=== PATIENT | male | born 1945 | race Caucasian/White ===

== ENCOUNTER 2016-05-29 18:05 | Inpatient (IN) | payer OTHER ==
[2016-05-29] MEDS ORDERED: NS 1,000 ML IV ONE ×2 (19:13)
[2016-05-29] MEDS ORDERED: ONDANSETRON 4 MG/2 ML VIAL IVP ONE (19:13)
--- NOTE | 2016-05-29 19:16 | EDPHY ---
H & P Time Seen by Provider: 05/29/16 18:47 HPI/ROS: CHIEF COMPLAINT: Left abdominal pain HISTORY OF PRESENT ILLNESS: Patient has a history of "spastic colon" and started having symptoms yesterday evening. He describes sweating with crampy left-sided abdominal pain associated with 3 episodes of red blood per rectum. No change in urinary symptoms. Does not radiate. Similar to previous episodes of his colon problem but he never before had bleeding. Symptoms of mild at present but was moderate to severe at home. Not better worse with oral intake. No vomiting or bloating. REVIEW OF SYSTEMS: Eye: no change in vision ENT: No ear symptoms Cardiac: no chest pain or syncope Pulmonary: Nonproductive cough for 2 days with mild sore throat Abdomen: HPI Musculoskeletal: no back pain Skin: no rash Neuro: no headache Constitutional: no fever : no urinary symptoms A comprehensive 10 point review of systems is otherwise negative aside from elements mentioned in the history of present illness. PAST MEDICAL HISTORY: Spastic colon as above, hernia repair, lumbar fusion, prostatectomy, hepatitis-A. Hiatal hernia.No history of atrial fibrillation. Social history: No alcohol, primary care is [place], . General Appearance: Alert and conversant, cooperative. Eyes: No scleral icterus. ENT, Mouth: Normal mucous membranes. Respiratory: Normal respiratory effort, breath sounds equal, lungs are clear to auscultation. Cardiovascular: Regular rate and rhythm. Gastrointestinal: Abdomen is soft and LLQ tenderness to palpation. No suprapubic tenderness. No rebound or guarding. Rectal exam shows yellow brown stool with otherwise normal rectal exam. No bleeding or hemorrhoid or surrounding induration. Neurological: Alert and oriented x3. Normally conversant. Face symmetric, normal movement and sensation in all extremities. Skin: Warm and dry, no rashes. Musculoskeletal: No peripheral edema and no joint swelling. Psychiatric: Not agitated. Emergency Department course/MDM: Zofran 4 mg IV, normal saline 2 L IV, noncontrast abdominal CT as the patient has anaphylactic allergy to IV contrast. Patient's rhythm is reviewed personally by myself on the monitor and is sinus, not atrial fibrillation. 1954: Results discussed, pain increasing, Dilaudid 0.5 mg IV. Does not meet SIRS criteria at this time. Plan for admission for supportive treatment of colitis, I think it is more likely infectious than ischemic. 2004: Discussed with uptake. Admit med surge, quinolone and Flagyl, add lactate. Patient had IV Flagyl started in the emergency department. The lactate was ordered as a screen for ischemic colitis not for sepsis. Smoking Status: Never smoked Constitutional: Initial Vital Signs Temperature (C) 36.5 C 05/29/16 18:17 Heart Rate 76 05/29/16 18:17 Respiratory Rate 16 05/29/16 18:17 Blood Pressure 103/95 H 05/29/16 18:17 O2 Sat (%) 98 05/29/16 18:17 O2 Delivery Mode Room Air Allergies/Adverse Reactions: Sulfa (Sulfonamide Antibiotics) Allergy (Mild, Verified 04/27/13 09:17) Iodinated Contrast Media - Oral and [IV Dye, Iodine Containing] Allergy ( Verified 04/27/13 09:17) Home Medications: Medication Instructions Recorded PARoxetine HCL [Paxil 20mg (RX)] 40 mg PO DAILY 04/27/13 Medical Decision Making - Diagnostics EKG Interpretation: 12-lead EKG interpreted by me; official reading is in trace master. My interpretation is sinus rhythm rate 61 no ischemic changes Imagin cm descending colitis, on CT per Isdilmai 1949. No SBO or mass or perforation. Differential Diagnosis: Differential considered including but not limited to diverticulitis, gastrointestinal cramping, renal colic, bowel obstruction, lower GI bleed. Consult/Admit Bed Type: [place] [id number] - Data Points Laboratory Results: Laboratory Results 05/29/16 18:54 05/29/16 18:54 05/29/16 05/29/16 05/29/16 19:00 18:54 18:54 WBC 14.37 10^3/uL H 10^3/uL (3.80-9.50) RBC 6.07 10^6/uL 10^6/uL (4.40-6.38) Hgb 18.5 g/dL H g/dL (13.7-17.5) Hct 54.2 % H % (40.0-51.0) MCV 89.3 fL fL (81.5-99.8) MCH 30.5 pg pg (27.9-34.1) MCHC 34.1 g/dL g/dL (32.4-36.7) RDW 13.1 % % (11.5-15.2) Plt Count 355 10^3/uL 10^3/uL (150-400) MPV 9.2 fL fL (8.7-11.7) Neut % (Auto) 82.1 % H % (39.3-74.2) Lymph % (Auto) 9.5 % L % (15.0-45.0) [place] % (Auto) 7.2 % % (4.5-13.0) Eos % (Auto) 0.2 % L % (0.6-7.6) Baso % (Auto) 0.6 % % (0.3-1.7) Nucleat RBC Rel Count 0.0 % % (0.0-0.2) Absolute Neuts (auto) 11.80 10^3/uL H 10^3/uL (1.70-6.50) Absolute Lymphs (auto) 1.36 10^3/uL 10^3/uL (1.00-3.00) Absolute Monos (auto) 1.03 10^3/uL H 10^3/uL (0.30-0.80) Absolute Eos (auto) 0.03 10^3/uL 10^3/uL (0.03-0.40) Absolute Basos (auto) 0.09 10^3/uL 10^3/uL (0.02-0.10) Absolute Nucleated RBC 0.00 10^3/uL 10^3/uL (0-0.01) Immature Gran % 0.4 % % (0.0-1.1) Immature Gran # 0.06 10^3/uL 10^3/uL (0.00-0.10) Sodium 141 mEq/L mEq/L (134-144) Potassium 3.8 mEq/L mEq/L (3.5-5.2) Chloride 98 mEq/L mEq/L (97-110) Carbon Dioxide 26 mEq/l mEq/l (22-31) Anion Gap 17 mEq/L H mEq/L (8-16) BUN 9 mg/dL mg/dL (7-23) Creatinine 1.0 mg/dL mg/dL (0.7-1.3) Estimated GFR > 60 Glucose 134 mg/dL H mg/dL (70-100) Calcium 10.2 mg/dL mg/dL (8.5-10.4) Total Bilirubin 2.1 mg/dL H mg/dL (0.1-1.4) Conjugated Bilirubin 0.5 mg/dL mg/dL (0.0-0.5) Unconjugated Bilirubin 1.6 mg/dL H mg/dL (0.0-1.1) AST 38 IU/L IU/L (17-59) ALT 26 IU/L IU/L (21-72) Alkaline Phosphatase 82 IU/L IU/L (38-126) Total Protein 9.0 g/dL H g/dL (6.3-8.2) Albumin 5.0 g/dL g/dL (3.5-5.0) Lipase 19.0 IU/L L IU/L (23-300) Stool Occult Bld Scrn POSITIVE H (NEGATIVE) Medications Given: Discontinued Medications Hydromorphone HCl (Dilaudid) 0.5 mg IVP EDNOW ONE Stop: 05/29/16 19:57 Last Admin: 05/29/16 20:19 Dose: 0.5 mg Sodium Chloride (Ns) 1,000 mls @ 0 mls/hr IV ONCE ONE PRN Reason: Wide Open Stop: 05/29/16 19:14 Last Admin: 05/29/16 19:22 Dose: 1,000 mls Sodium Chloride (Ns) 1,000 mls @ 0 mls/hr IV ONCE ONE PRN Reason: Wide Open Stop: 05/29/16 19:14 Last Admin: 05/29/16 19:23 Dose: 1,000 mls Ondansetron HCl (Zofran) 4 mg IVP EDNOW ONE Stop: 05/29/16 19:14 Last Admin: 05/29/16 19:22 Dose: 4 mg Departure - Departure Disposition: [facility] Inpatient Acute Clinical Impression: Colitis Condition: Good
[2016-05-29 19:20] LABS: % IMMATURE GRANULYOCYTES 0.4 % (0.0-1.1); ABSOLUTE IMMATURE GRANULOCYTES 0.06 10^3/uL (0.00-0.10); ADD DIFF? NO; ADD MORPH? NO; ADD SCAN? NO; ATYPICAL LYMPHOCYTE FLAG 0 (0-99); FRAGMENT RBC FLAG 0 (0-99); HEMATOCRIT 54.2 % (40.0-51.0); HEMOGLOBIN 18.5 g/dL (13.7-17.5); LEFT SHIFT FLG 0 (0-99); LIPEMIA HEMOLYSIS FLAG 90 (0-99); MEAN CELL HEMOGLOBIN 30.5 pg (27.9-34.1); MEAN CELL HEMOGLOBIN CONCENTR. 34.1 g/dL (32.4-36.7); MEAN CELL VOLUME 89.3 fL (81.5-99.8); MEAN PLATELET VOLUME 9.2 fL (8.7-11.7); PLATELET CLUMPS FLAG 10 (0-99); PLATELET COUNT 355 10^3/uL (150-400); RED BLOOD CELL COUNT 6.07 10^6/uL (4.40-6.38); RED CELL DISTRIBUTION WIDTH 13.1 % (11.5-15.2)
[2016-05-29 19:29] LABS: ALANINE AMINOTRANSFERASE 26 IU/L (21-72); ALKALINE PHOSPHATASE 82 IU/L (38-126); ANION GAP 17 mEq/L (8-16); ASPARTATE AMINOTRANSFERASE 38 IU/L (17-59); BILIRUBIN,TOTAL 2.1 mg/dL (0.1-1.4); BILIRUBIN-CONJUGATED 0.5 mg/dL (0.0-0.5); BILIRUBIN-UNCONJUGATED 1.6 mg/dL (0.0-1.1); CALCIUM 10.2 mg/dL (8.5-10.4); CARBON DIOXIDE 26 mEq/l (22-31); CHLORIDE 98 mEq/L (97-110); GLOMERULAR FILTRATION RATE > 60; GLUCOSE 134 mg/dL (70-100); POTASSIUM 3.8 mEq/L (3.5-5.2); SODIUM 141 mEq/L (134-144)
[2016-05-29] MEDS ORDERED: HYDROmorphONE/DILAUDID 1 MG/ML SYR IVP ONE (19:56)
--- NOTE | 2016-05-29 20:09 | CPEKG ---
Heart Rate: 61 RR Interval: 984 P-R Interval: 148 QRSD Interval: 94 QT Interval: 448 QTC Interval: 452 P [place]: 65 QRS [place]: 76 T Wave [place]: 66 EKG Severity - NORMAL ECG - EKG Impression: SINUS RHYTHM Electronically Signed By: Nicolás Dupont 29-May-2016 20:23:15
--- NOTE | 2016-05-29 20:33 | PDGENHP ---
History and Physical - Chief Complaint Acute abdominal pain - History of Present Illness PCP: Kali Gabriel HPI: 70-year-old male presenting with acute abdominal pain characterized as a crampy pain located in the mid and left sonia abdomen with associated bright red blood per rectum, cough, sore throat, sweatiness. Onset of his cough and sore throat was approximately 3 days ago and this was somewhat alleviated by guaifenesin/codeine. He then developed his abdominal symptoms on the evening prior to this presentation, occurring at rest, with associated nausea. His nausea was exacerbated by oral intake and he has not eaten any food the day of this presentation. He reports he did experience 3 bloody bowel movements and this is highly unusual for him. This prompted him to seek medical attention. The abdominal pain has been somewhat alleviated by IV Dilaudid received in the emergency department. He reports that the character of the abdominal discomfort is similar to he describes as colonic spasms, but the bright red blood per rectum is new. History Information - Allergies/Home Medication List Allergies/Adverse Reactions: Sulfa (Sulfonamide Antibiotics) Allergy (Mild, Verified 04/27/13 09:17) Iodinated Contrast Media - Oral and [IV Dye, Iodine Containing] Allergy ( Verified 04/27/13 09:17) Home Medications: PARoxetine HCL [Paxil 20mg (RX)] 40 mg PO DAILY 04/27/13 [Last Taken Unknown] I have personally reviewed and updated: family history, medical history, social history, surgical history - Past Medical History GERD Additional medical history: Prostate cancer. Sigmoid perforation secondary to cautery burn during prostate surgery. Hiatal hernia - Surgical History Additional surgical history: Hiatal hernia and fundoplication. Lumbar fusion. Prostatectomy. Exploratory laparotomy and sigmoid perforation secondary to cautery burn in the setting of prostatectomy, repair [place] [address] Velez - Family History Additional family history: has been ill with similar GI symptoms. Father with CABG at unknown age - Social History Smoking Status: Former smoker Alcohol Use: Occasionally Drug Use: None Additional social history: Independent in his ADLs, walks a trach with his and has not recently experienced any reduction in exercise tolerance Review of Systems ROS: 10pt was reviewed & negative except for what was stated in HPI & below Respiratory: Reports: cough, other (Sore throat) Gastrointestinal: Reports: rectal bleeding, abdominal pain, nausea Physical Exam Temp Pulse Resp BP Pulse Ox 36.5 C 76 16 103/95 H 98 05/29/16 18:17 05/29/16 18:17 05/29/16 18:17 05/29/16 18:17 05/29/16 18:17 Constitutional: no apparent distress, appears nourished, not in pain Eyes: PERRL, anicteric sclera, EOMI Ears, Nose, Mouth, Throat: moist mucous membranes, hearing normal, ears appear normal, no oral mucosal ulcers Cardiovascular: regular rate and rhythym, no murmur, rub, or gallop, No edema Respiratory: no respiratory distress, no rales or rhonchi, clear to auscultation Gastrointestinal: normoactive bowel sounds, tenderness (Left hemidiaphragm), No guarding, No distension Skin: warm, normal color, no rashes or abrasions, no fluctuance, no induration, other (Abdominal incision scar), No mottled Neurologic: AAOx3, sensation intact bilaterally, No weakness (5/5 motor bilateral lower extremity) Psychiatric: interacting appropriately, not anxious, not encephalopathic, thought process linear Lab Data & Imaging Review 05/29/16 18:54 05/29/16 18:54 WBC 14.37 10^3/uL (3.80-9.50) H 05/29/16 18:54 RBC 6.07 10^6/uL (4.40-6.38) 05/29/16 18:54 Hgb 18.5 g/dL (13.7-17.5) H 05/29/16 18:54 Hct 54.2 % (40.0-51.0) H 05/29/16 18:54 MCV 89.3 fL (81.5-99.8) 05/29/16 18:54 MCH 30.5 pg (27.9-34.1) 05/29/16 18:54 MCHC 34.1 g/dL (32.4-36.7) 05/29/16 18:54 RDW 13.1 % (11.5-15.2) 05/29/16 18:54 Plt Count 355 10^3/uL (150-400) 05/29/16 18:54 MPV 9.2 fL (8.7-11.7) 05/29/16 18:54 Neut % (Auto) 82.1 % (39.3-74.2) H 05/29/16 18:54 Lymph % (Auto) 9.5 % (15.0-45.0) L 05/29/16 18:54 [place] % (Auto) 7.2 % (4.5-13.0) 05/29/16 18:54 Eos % (Auto) 0.2 % (0.6-7.6) L 05/29/16 18:54 Baso % (Auto) 0.6 % (0.3-1.7) 05/29/16 18:54 Nucleat RBC Rel Count 0.0 % (0.0-0.2) 05/29/16 18:54 Absolute Neuts (auto) 11.80 10^3/uL (1.70-6.50) H 05/29/16 18:54 Absolute Lymphs (auto) 1.36 10^3/uL (1.00-3.00) 05/29/16 18:54 Absolute Monos (auto) 1.03 10^3/uL (0.30-0.80) H 05/29/16 18:54 Absolute Eos (auto) 0.03 10^3/uL (0.03-0.40) 05/29/16 18:54 Absolute Basos (auto) 0.09 10^3/uL (0.02-0.10) 05/29/16 18:54 Absolute Nucleated RBC 0.00 10^3/uL (0-0.01) 05/29/16 18:54 Immature Gran % 0.4 % (0.0-1.1) 05/29/16 18:54 Immature Gran # 0.06 10^3/uL (0.00-0.10) 05/29/16 18:54 Sodium 141 mEq/L (134-144) 05/29/16 18:54 Potassium 3.8 mEq/L (3.5-5.2) 05/29/16 18:54 Chloride 98 mEq/L (97-110) 05/29/16 18:54 Carbon Dioxide 26 mEq/l (22-31) 05/29/16 18:54 Anion Gap 17 mEq/L (8-16) H 05/29/16 18:54 BUN 9 mg/dL (7-23) 05/29/16 18:54 Creatinine 1.0 mg/dL (0.7-1.3) 05/29/16 18:54 Estimated GFR > 60 05/29/16 18:54 Glucose 134 mg/dL (70-100) H 05/29/16 18:54 Calcium 10.2 mg/dL (8.5-10.4) 05/29/16 18:54 Total Bilirubin 2.1 mg/dL (0.1-1.4) H 05/29/16 18:54 Conjugated Bilirubin 0.5 mg/dL (0.0-0.5) 05/29/16 18:54 Unconjugated Bilirubin 1.6 mg/dL (0.0-1.1) H 05/29/16 18:54 AST 38 IU/L (17-59) 05/29/16 18:54 ALT 26 IU/L (21-72) 05/29/16 18:54 Alkaline Phosphatase 82 IU/L (38-126) 05/29/16 18:54 Total Protein 9.0 g/dL (6.3-8.2) H 05/29/16 18:54 Albumin 5.0 g/dL (3.5-5.0) 05/29/16 18:54 Lipase 19.0 IU/L (23-300) L 05/29/16 18:54 Stool Occult Bld Scrn POSITIVE (NEGATIVE) H 05/29/16 19:00 Visualized and Interpreted EKG results: Yes EKG Interpretation: Positive for: other (Normal sinus rhythm without any ST changes) Assessment & Plan Assessment: 70-year-old male presenting with acute abdominal pain secondary to acute colitis Plan: 1. Colitis. Acute, new problem this provider, further workup indicated. Potential etiologies include infectious with possible hemorrhagic E coli versus ischemic versus diverticulitis unidentified on a CT without contrast -given his leukocytosis and significant abdominal symptoms, treat as potential infectious colitis with possible diverticulitis and IV Cipro/Flagyl -send stool PCR when the patient has his next bowel movement -send serum lactic acid level -repeat CBC in a.m. -continue IV fluids -continue as needed pain medications -bowel rest -discussed with Dr. Nicolás Dupont in the emergency department, he has reported to me that Dr. Godinez from General surgery has been consulted -patient has an RCRI score of 0, conferring 0.5% perioperative risk of cardiovascular event, conferring a low risk cardiovascular patient for an intermediate risk surgery if necessary -reviewed outside records including 04/30/[address] Edinson Mayers reporting the patient had a small amount of potentially apical ischemia on stress test which was not felt to be clinically relevant at that time, no indication for further cardiac risk stratification at this time 2. Hyperbilirubinemia. Most likely secondary to stress response, continue to monitor 3. Acute lower gastrointestinal hemorrhage. Most likely secondary to colitis, patient's hemoglobin level is currently hemoconcentrated -repeat CBC in a.m. -anticipated hemoglobin level will decline with IV fluids secondary to delusional effect -monitor for signs of lower GI bleeding, fecal occult blood is currently positive -no indication for transfusion Diet. NPO, IV fluids Prophylaxis. Moderate risk patient, SCDs, pharm contraindicated in setting of bleed Code. Do not resuscitate per patient, his is MPOA Disposition. Anticipated discharge is 05/30/2016, pending further workup and treatment of above. If patient requires greater than 48 hours for stabilization and initiation of diet, ongoing IV fluids, ongoing IV antibiotics and pain medications, then he will be upgraded to inpatient admission status at that time.
[2016-05-29] MEDS ORDERED: ONDANSETRON 4 MG/2 ML VIAL IVP PRN (20:40)
[2016-05-29] MEDS ORDERED: HYDROmorphONE/DILAUDID 2 MG TAB PO PRN (20:40)
[2016-05-29] MEDS ORDERED: ONDANSETRON DISINTEGRATING 4 MG TAB PO PRN (20:40)
[2016-05-29] MEDS ORDERED: PROMETHAZINE HCL 25 MG TAB PO PRN (20:40)
[2016-05-29] MEDS ORDERED: PROMETHAZINE HCL 25 MG/ML INJ IVP PRN (20:40)
[2016-05-29] MEDS ORDERED: HYDROmorphONE/DILAUDID 1 MG/ML SYR IVP PRN (20:40)
[2016-05-29 21:39] LABS: LACGHOST ORDER
[2016-05-29] MEDS: NS W/ 20 KCl/L 1,000 ML IV SCH (22:30)
[2016-05-30 05:38] LABS: % IMMATURE GRANULYOCYTES 0.4 % (0.0-1.1); ABSOLUTE IMMATURE GRANULOCYTES 0.05 10^3/uL (0.00-0.10); ADD DIFF? NO; ADD MORPH? NO; ADD SCAN? NO; ATYPICAL LYMPHOCYTE FLAG 0 (0-99); FRAGMENT RBC FLAG 0 (0-99); HEMATOCRIT 47.9 % (40.0-51.0); HEMOGLOBIN 16.3 g/dL (13.7-17.5); LEFT SHIFT FLG 0 (0-99); LIPEMIA HEMOLYSIS FLAG 90 (0-99); MEAN CELL HEMOGLOBIN 30.9 pg (27.9-34.1); MEAN CELL VOLUME 90.9 fL (81.5-99.8); MEAN PLATELET VOLUME 9.1 fL (8.7-11.7); PLATELET CLUMPS FLAG 10 (0-99); PLATELET COUNT 225 10^3/uL (150-400); RED BLOOD CELL COUNT 5.27 10^6/uL (4.40-6.38)
[2016-05-30 05:58] LABS: INR 1.11 (0.83-1.16); PROTIME(PATIENT) 14.2 SEC (12.0-15.0)
[2016-05-30 05:59] LABS: APTT 28.4 SEC (23.0-38.0)
[2016-05-30 06:09] LABS: ALANINE AMINOTRANSFERASE 26 IU/L (21-72); ALBUMIN 4.1 g/dL (3.5-5.0); ALKALINE PHOSPHATASE 62 IU/L (38-126); ANION GAP 12 mEq/L (8-16); ASPARTATE AMINOTRANSFERASE 30 IU/L (17-59); BILIRUBIN,TOTAL 2.1 mg/dL (0.1-1.4); CALCIUM 8.7 mg/dL (8.5-10.4); CARBON DIOXIDE 23 mEq/l (22-31); CHLORIDE 103 mEq/L (97-110); CREATININE 0.9 mg/dL (0.7-1.3); GLOMERULAR FILTRATION RATE > 60; GLUCOSE 110 mg/dL (70-100); SODIUM 138 mEq/L (134-144); TOTAL PROTEIN 7.2 g/dL (6.3-8.2)
[2016-05-30 06:17] LABS: BILIRUBIN-CONJUGATED 0.5 mg/dL (0.0-0.5); BILIRUBIN-UNCONJUGATED 1.6 mg/dL (0.0-1.1)
[2016-05-30] MEDS ORDERED: VENLAFAXINE HCL 75 MG PO SCH (09:00)
[2016-05-30] MEDS ORDERED: VENLAFAXINE XR 37.5 MG CAP PO SCH (09:00)
[2016-05-30] MEDS: VENLAFAXINE XR 37.5 MG CAP PO SCH ×2 (09:55→13:19)
[2016-05-30] MEDS: VENLAFAXINE XR 75 MG CAP PO SCH ×2 (09:56→13:19)
[2016-05-30] MEDS: NS W/ 20 KCl/L 1,000 ML IV SCH ×2 (11:16→18:27)
--- NOTE | 2016-05-30 11:24 | SOAPPROG ---
SOAP Progress Note Assessment/Plan: Assessment: HD # 2 for colitis. Wants to leave. I told the patient that I think leaving would be a poor choice as he is NPO and receiving IV antibiotics and still had a bloody bowel movement this am Surgery will continue to follow. No acute surgical intervention needed at this time S: moisture machine tender. Bloody BM at 4am O: Abdomen is soft. Tender to palpation in LUQ. No peritoneal signs Plan: 05/30/16 11:22 Objective: Vital Signs Temp Pulse Resp BP Pulse Ox 36.9 C 75 18 149/89 H 96 05/30/16 07:37 05/30/16 07:37 05/30/16 07:37 05/30/16 07:37 05/30/16 07:37 Laboratory Results 05/30/16 05:17 05/30/16 05:17 05/29/16 05/30/16 05/31/16 05:59 05:59 05:59 Intake Total 4400 Balance 4400 PT 14.2 SEC (12.0-15.0) 05/30/16 05:17 INR 1.11 (0.83-1.16) 05/30/16 05:17 ICD10 Worksheet Patient Problems: Problems Problem Status Onset Colitis Acute Chest pain Acute Constipation Acute Hernia of abdominal wall Acute Personal history of prostate cancer Acute
[2016-05-30] MEDS: ACETAMINOPHEN 325 MG TAB PO PRN (11:29)
--- NOTE | 2016-05-30 11:54 | GCON ---
GENERAL SURGERY CONSULTATION DATE OF CONSULTATION: 05/30/2016 REFERRING PHYSICIAN: Nicolás Dupont MD CHIEF COMPLAINT: Colitis. REQUESTING PHYSICIAN: Nicolás Dupont MD HISTORY OF PRESENT ILLNESS: The patient is a 70-year-old who has had a history of irritable bowel syndrome. He reports that he has a colonoscopy every 2-3 years with polyps removed. He thinks he should change his colonoscopies to every 10 years ago. His last colonoscopy was 2 years ago. He developed abdominal pain which was crampy in nature, located in the epigastric region and over on the left side, and then had several episodes of bright red blood per rectum. In the emergency room, a CT scan was obtained which showed colitis in the transverse and descending colon with circumferential wall thickening. His lactate was normal. His white blood cell count was elevated at 14.37, hemoglobin and hematocrit 18.5 and 54.2. PAST MEDICAL HISTORY: Depression, history of prostate cancer. PAST SURGICAL HISTORY: Includes hiatal hernia repair x4. He has also had a prostatectomy for prostate cancer. He reports he had a sigmoid perforation when he had his prostatectomy and that was also repaired. ALLERGIES: Sulfa and IV contrast. FAMILY HISTORY: Coronary artery disease. SOCIAL HISTORY: Previously smoked. He uses alcohol on occasion. He lives at home with his . REVIEW OF SYSTEMS: A 10-point review of systems is otherwise negative. PHYSICAL EXAMINATION: VITAL SIGNS: 36.7, 62, 158/94, 18, 96% on room air. GENERAL: As pleasant, well-nourished, well-groomed man, sitting in bed. HEENT : Normocephalic. No gross hearing deficits. Mucous membranes moist. Pupils equal and round. No scleral icterus. LUNGS: Clear to auscultation bilaterally. No increased work of breathing. CARDIAC: Regular rate. No peripheral edema. CHEST: He has a large left posterior lateral thoracotomy incision. ABDOMEN: He has several incisions on his abdomen that are well healed. He is tender in the left upper quadrant to palpation. His bowel sounds are present. MUSCULOSKELETAL: Normal nails. LABORATORY RESULTS: Reviewed, as per HPI. IMPRESSION AND PLAN: Shiv Evans is a 70-year-old with ischemic colitis. I recommended continuing NPO status and IV antibiotics. At this time, I do not believe this is ischemic in nature. Surgery will continue to follow him. It is hopeful that he will have a decrease in his bloody bowel movements. It may be a consideration to have GI involved. Surgery will continue to follow. /[id number]/MODL MTDD
--- NOTE | 2016-05-30 15:18 | HOSPPROG ---
Hospitalist Progress Note Assessment/Plan: 1. Colitis. Acute. Potential etiologies include infectious with possible hemorrhagic E coli versus ischemic versus diverticulitis unidentified on a CT without contrast -He is improving clinically on IV abx. Will continue treatment with IV Cipro and Flagyl -Surgery is following, they do not believe its ischemic. Cont with IV abx -Stool Culture is pending -Bowel Rest -Cont IVF, will decrease rate 2. Hyperbilirubinemia, mild. Most likely secondary to stress response, continue to monitor 3. Acute lower gastrointestinal hemorrhage. Most likely secondary to colitis, patient's hgb appears stable. Cont to monitor -monitor for signs of lower GI bleeding, fecal occult blood is currently positive -no indication for transfusion 4. Hx of Prostate Cancer Diet. NPO, IV fluids Prophylaxis. Moderate risk patient, SCDs, pharm contraindicated in setting of bleed Code. Do not resuscitate per patient, his is MPOA Disposition. per clinical course S: Feels better Had one bloody BM at 4 am today. no other BM's Afebrile No CP, SOB Mild abd discomfort Labs: WBC: 13.6 Hgb: 16.3 Platelets: 225 Objective: Vital Signs Temp Pulse Resp BP Pulse Ox 36.8 C 72 14 129/82 H 98 05/30/16 11:26 05/30/16 11:26 05/30/16 11:26 05/30/16 11:26 05/30/16 11:26 Laboratory Results 05/30/16 05:17 05/30/16 05:17 05/29/16 05/30/16 05/31/16 05:59 05:59 05:59 Intake Total 4400 Output Total 400 Balance 4400 -400 PT 14.2 SEC (12.0-15.0) 05/30/16 05:17 INR 1.11 (0.83-1.16) 05/30/16 05:17 - Time Spent With Patient Time Spent with Patient: greater than 25 minutes Time Spent with Patient: Greater than 25 minutes spent on this patients care, greater than 50% of time spent counseling, educating, and coordinating care regarding the above mentioned plan. - Physical Exam Constitutional: no apparent distress, appears nourished, not in pain Eyes: PERRL, anicteric sclera, EOMI Ears, Nose, Mouth, Throat: moist mucous membranes, hearing normal, ears appear normal, no oral mucosal ulcers Cardiovascular: regular rate and rhythym, no murmur, rub, or gallop Respiratory: no respiratory distress, no rales or rhonchi, clear to auscultation Gastrointestinal: tenderness Genitourinary: no bladder fullness, no bladder tenderness, no renal bruits Skin: no rashes or abrasions, no fluctuance, no induration Neurologic: AAOx3, sensation intact bilaterally Psychiatric: interacting appropriately, not anxious, not encephalopathic, thought process linear ICD10 Worksheet Patient Problems: Problems Problem Status Onset Colitis Acute Chest pain Acute Constipation Acute Hernia of abdominal wall Acute Personal history of prostate cancer Acute
[2016-05-30 18:29] LABS: ALANINE AMINOTRANSFERASE 32 IU/L (21-72); ALBUMIN 4.1 g/dL (3.5-5.0); ALKALINE PHOSPHATASE 56 IU/L (38-126); ANION GAP 12 mEq/L (8-16); ASPARTATE AMINOTRANSFERASE 32 IU/L (17-59); BILIRUBIN,TOTAL 2.1 mg/dL (0.1-1.4); CALCIUM 8.7 mg/dL (8.5-10.4); CARBON DIOXIDE 23 mEq/l (22-31); CHLORIDE 103 mEq/L (97-110); CREATININE 0.9 mg/dL (0.7-1.3); GLOMERULAR FILTRATION RATE > 60; GLUCOSE 89 mg/dL (70-100); SODIUM 138 mEq/L (134-144); TOTAL PROTEIN 7.5 g/dL (6.3-8.2)
[2016-05-30 18:37] LABS: BILIRUBIN-CONJUGATED 0.3 mg/dL (0.0-0.5); BILIRUBIN-UNCONJUGATED 1.8 mg/dL (0.0-1.1)
[2016-05-30] MEDS ORDERED: CIPROFLOXACIN 400 MG/DEXTROSE 200 ML IV SCH (20:00)
[2016-05-30] MEDS: CIPROFLOXACIN 400 MG/DEXTROSE 200 ML IV SCH (20:36)
[2016-05-30] MEDS ORDERED: LORazepam 0.5 MG TAB PO ONE (21:00)
[2016-05-31 05:04] LABS: % IMMATURE GRANULYOCYTES 0.3 % (0.0-1.1); ABSOLUTE IMMATURE GRANULOCYTES 0.03 10^3/uL (0.00-0.10); ADD DIFF? NO; ADD MORPH? NO; ADD SCAN? NO; ATYPICAL LYMPHOCYTE FLAG 10 (0-99); FRAGMENT RBC FLAG 0 (0-99); LEFT SHIFT FLG 0 (0-99); LIPEMIA HEMOLYSIS FLAG 80 (0-99); MEAN CELL HEMOGLOBIN CONCENTR. 33.3 g/dL (32.4-36.7); MEAN PLATELET VOLUME 9.3 fL (8.7-11.7); PLATELET CLUMPS FLAG 0 (0-99); PLATELET COUNT 201 10^3/uL (150-400); RED BLOOD CELL COUNT 4.84 10^6/uL (4.40-6.38); RED CELL DISTRIBUTION WIDTH 13.2 % (11.5-15.2)
[2016-05-31] MEDS: ACETAMINOPHEN 325 MG TAB PO PRN (05:30)
[2016-05-31] MEDS: CIPROFLOXACIN 400 MG/DEXTROSE 200 ML IV SCH ×2 (10:40→20:07)
[2016-05-31] MEDS: VENLAFAXINE XR 75 MG CAP PO SCH (10:40)
[2016-05-31] MEDS: VENLAFAXINE XR 37.5 MG CAP PO SCH (10:40)
--- NOTE | 2016-05-31 12:35 | SOAPPROG ---
SOAP Progress Note Assessment/Plan: Assessment/Plan - 70yo M c colitis, favor infectious - looks great, feels great. Pain has completely resolved and his abdomen is completely soft and reassuring. In addition, WBC has normalized and H&H has not drifted. Would PO challenge and favor d/c if tolerates. 05/31/16 12:34 Subjective: No pain, wants to eat. Objective: Vital Signs Temp Pulse Resp BP Pulse Ox 36.4 C 60 15 119/67 95 05/31/16 07:44 05/31/16 07:44 05/31/16 07:44 05/31/16 07:44 05/31/16 07:44 Laboratory Results 05/31/16 04:47 05/30/16 18:10 05/30/16 05/31/16 06/01/16 05:59 05:59 05:59 Intake Total 5536 Balance 5536 PT 14.2 SEC (12.0-15.0) 05/30/16 05:17 INR 1.11 (0.83-1.16) 05/30/16 05:17 ICD10 Worksheet Patient Problems: Problems Problem Status Onset Colitis Acute Chest pain Acute Constipation Acute Hernia of abdominal wall Acute Personal history of prostate cancer Acute
--- NOTE | 2016-05-31 13:25 | HOSPPROG ---
Hospitalist Progress Note Assessment/Plan: # Acute Colitis-highly suspicious for infectious as presented with leukocytosis and abdominal pain- both improved on IV antibiotics CT without contrast ( personally reviewed and interpreted) transverse and descending colitis - no stool culture obtained on admission - continue IV abx - continue NPO status at past very bloody bowel movement this morning - Surgery is following -Cont IVF, while NPO # acute leukocytosis- resolved this a.m. WBC 14-> 8 oxygen saturations 95% on room air - continue IV antibiotics - continue supportive care # Hyperbilirubinemia- remains 1.9- suspect secondary to acute illness - continue to monitor # Acute lower gastrointestinal hemorrhage- secondary to colitis- H & H remained stable overnight - monitor daily # Hx of Prostate Cancer # Diet. NPO, IV fluids # Prophylaxis. Moderate risk patient, SCDs, pharm contraindicated in setting of bleed # Code. Do not resuscitate per patient, his is MPOA # Disposition- when we can advance diet successfully I have discussed the case with Dr. Willis from surgery- will continue NPO as patient passed large bloody bowel movement this morning Subjective: abdominal pain improved Objective: Vital Signs Temp Pulse Resp BP Pulse Ox 36.4 C 60 15 119/67 95 05/31/16 07:44 05/31/16 07:44 05/31/16 07:44 05/31/16 07:44 05/31/16 07:44 Laboratory Results 05/31/16 04:47 05/30/16 18:10 05/30/16 05/31/16 06/01/16 05:59 05:59 05:59 Intake Total 5536 Balance 5536 PT 14.2 SEC (12.0-15.0) 05/30/16 05:17 INR 1.11 (0.83-1.16) 05/30/16 05:17 - Physical Exam Constitutional: appears nourished Eyes: anicteric sclera Ears, Nose, Mouth, Throat: moist mucous membranes Cardiovascular: regular rate and rhythym Respiratory: no respiratory distress, no rales or rhonchi Gastrointestinal: soft, non-tender abdomen, No normoactive bowel sounds Genitourinary: no bladder fullness Skin: warm, normal color Musculoskeletal: No asymmetric calves Neurologic: AAOx3 Psychiatric: interacting appropriately, not anxious Lymph, Heme, Immunologic: no cervical LAD ICD10 Worksheet Patient Problems: Problems Problem Status Onset Colitis Acute Chest pain Acute Constipation Acute Hernia of abdominal wall Acute Personal history of prostate cancer Acute
[2016-05-31] MEDS: NS W/ 20 KCl/L 1,000 ML IV SCH (18:24)
[2016-06-01] MEDS: NS W/ 20 KCl/L 1,000 ML IV SCH (04:58)
[2016-06-01 06:01] LABS: HEMATOCRIT 41.1 % (40.0-51.0); HEMOGLOBIN 13.7 g/dL (13.7-17.5); MEAN CELL HEMOGLOBIN 31.1 pg (27.9-34.1); MEAN CELL HEMOGLOBIN CONCENTR. 33.3 g/dL (32.4-36.7); MEAN CELL VOLUME 93.2 fL (81.5-99.8); RED BLOOD CELL COUNT 4.41 10^6/uL (4.40-6.38); RED CELL DISTRIBUTION WIDTH 13.1 % (11.5-15.2)
[2016-06-01 06:19] LABS: ANION GAP 12 mEq/L (8-16); CALCIUM 8.4 mg/dL (8.5-10.4); CARBON DIOXIDE 16 mEq/l (22-31); CHLORIDE 109 mEq/L (97-110); CREATININE 0.9 mg/dL (0.7-1.3); GLOMERULAR FILTRATION RATE > 60; GLUCOSE 61 mg/dL (70-100); POTASSIUM 4.2 mEq/L (3.5-5.2); SODIUM 137 mEq/L (134-144)
[2016-06-01 07:34] VITALS: RESP 15
[2016-06-01] MEDS: VENLAFAXINE XR 37.5 MG CAP PO SCH (08:59)
[2016-06-01] MEDS: CIPROFLOXACIN 400 MG/DEXTROSE 200 ML IV SCH (08:59)
[2016-06-01] MEDS: VENLAFAXINE XR 75 MG CAP PO SCH (08:59)
--- NOTE | 2016-06-01 09:20 | SOAPPROG ---
SOAP Progress Note Assessment/Plan: Assessment/Plan - 70yo M c colitis, favor infectious - had small bloody BM yesterday, kept NPO throughout the day. Had small BM today , had some blood tinged mucus but much less than previous. Abdomen is completely soft and nontender. He is hungry, I think we should feed him today. Told him to follow bland diet, but no real dietary restrictions to follow as outpatient. 05/31/16 12:34 06/01/16 09:18 Subjective: feels great, walking like a champ Objective: Vital Signs Temp Pulse Resp BP Pulse Ox 36.7 C 70 15 109/68 94 06/01/16 07:32 06/01/16 07:32 06/01/16 07:32 06/01/16 07:32 06/01/16 07:32 Microbiology 05/31/16 13:55 Gastrointestinal Tract Panel (PCR) - Final Stool No Organism Detected Laboratory Results 06/01/16 04:44 06/01/16 04:44 05/31/16 06/01/16 06/02/16 05:59 05:59 05:59 Intake Total 5536 2125 Balance 5536 2125 PT 14.2 SEC (12.0-15.0) 05/30/16 05:17 INR 1.11 (0.83-1.16) 05/30/16 05:17 ICD10 Worksheet Patient Problems: Problems Problem Status Onset Colitis Acute Chest pain Acute Constipation Acute Hernia of abdominal wall Acute Personal history of prostate cancer Acute
[2016-06-01 11:56] VITALS: BP 106/65; PULSE 75; TEMP 98.5; O2SAT 96
--- NOTE | 2016-06-01 22:07 | GDS ---
DISCHARGE DIAGNOSES: Include: 1. Acute colitis thought infectious. 2. Acute leukocytosis, resolved. 3. Acute lower gastrointestinal bleed secondary to colitis. 4. History of prostate cancer. 5. Hyperbilirubinemia. HISTORY OF PRESENT ILLNESS: A 70-year-old male who presents with complaint of abdominal pain. For details of patient's initial presentation, please see the History and Physical dated 05/29/16 CONSULTATIONS: General surgery, Dr. Godinez and Dr. Willis. PROCEDURES: On 05/29/2016, patient had a CT of the abdomen that showed distal transverse and descending colitis. HOSPITAL COURSE: By issue: 1. Acute colitis. Patient presented with leukocytosis, bloody stools, and abdominal pain, was initiated appropriately on IV fluid hydration, pain medication and IV antibiotics. He had normalization of his leukocytosis from 18 to normal on the day of disposition. His abdominal pain is nearly resolved and his stooling has become markedly less bloody. Patient will complete a 7-day course of antibiotics on oral ciprofloxacin and metronidazole, and follow in his outpatient primary care clinic for post disposition followup. Patient did have a GI pathogen panel sent, and the panel had no PCR positivity for bacteria , parasite, or viruses screened. 2. Hyperbilirubinemia. We suspect this is related to the acute presentation. Bilirubin is only 2.1 when last checked. We recommend the patient have his liver function tests followed by his outpatient provider. DISCHARGE MEDICATIONS: Please reference medication reconciliation printed on . PENDING STUDIES: At the time of this dictation are none. FOLLOWUP APPOINTMENTS: Include with Dr. Wlilis as needed, and with his primary care provider next week after completion of antibiotics. I spent greater than 30 minutes in the planning and coordination of this discharge. /[id number]/MODL MTDD
== END 2016-06-01 16:35 | disposition home or self-care (01) | DRG 392 ==
LOC: INTOOBSV 20:04 → F3N 20:45 → OBSVTOIN 05-30 15:14
PROVIDERS: ADMIT Internal Medicine; ATTEND Internal Medicine
DX: A09 Infectious gastroenteritis and colitis, unspecified (principal); K92.2 Gastrointestinal hemorrhage, unspecified; E80.6 Other disorders of bilirubin metabolism; Z85.46 Personal history of malignant neoplasm of prostate; Z66 Do not resuscitate
CPT/HCPCS: 96365; G0378; J0744; J1170; J1956; J2405

== ENCOUNTER → 2016-11-21 | Outpatient (CLI) | payer OTHER ==
[~2016-11-21] MED LIST: GADOBUTROL 10 ML VIAL IVP ONE
== END ==
LOC: FIMAGING 13:59
PROVIDERS: ATTEND Physician Assistant Surgical
DX: M51.36 Other intervertebral disc degeneration, lumbar region (principal); M43.16 Spondylolisthesis, lumbar region
CPT/HCPCS: 72114; 72158; A9585

== ENCOUNTER → 2017-01-10 | Outpatient (CLI) | payer OTHER | LOC: FIMAGING 11:00 | PROVIDERS: ATTEND Physician Assistant Surgical | DX: S13.140A Subluxation of C3/C4 cervical vertebrae, initial encounter (principal); S13.150A Subluxation of C4/C5 cervical vertebrae, initial encounter; M50.31 Other cervical disc degeneration, high cervical region; M46.92 Unspecified inflammatory spondylopathy, cervical region; M48.02 Spinal stenosis, cervical region; M41.84 Other forms of scoliosis, thoracic region; M51.24 Other intervertebral disc displacement, thoracic region; M48.04 Spinal stenosis, thoracic region ==

== ENCOUNTER → 2017-02-07 | Outpatient (CLI) | payer OTHER | LOC: FIMAGING 11:03 | PROVIDERS: ATTEND Neurological Surgery | DX: M43.26 Fusion of spine, lumbar region (principal); M51.36 Other intervertebral disc degeneration, lumbar region; M50.320 Other cervical disc degeneration, mid-cervical region, unspecified level ==